=== PATIENT | female | born 1980 | race Caucasian/White ===

== ENCOUNTER 2019-04-25 12:27 | Inpatient (IN) | payer OTHER ==
[2019-04-25] MEDS ORDERED: ONDANSETRON 4 MG/2 ML VIAL ONE (13:00)
[2019-04-25] MEDS ORDERED: NA CHLORIDE 0.9% 1,000 ML ONE (13:00)
[2019-04-25 13:23] LABS: Absolute Lymphocytes (CBC) 1.7 K/uL (0.7-4.9); Basophils % 0.3 % (0-1.3); Hematocrit 35.9 % (36.0-45.0); Lymphocytes % 7.9 % (15.3-44.8); MPV 7.6 fL (7.6-11.3); RBC Red Blood Cell Count 4.01 M/uL (3.86-4.86)
[2019-04-25 14:06] LABS: Platelet Estimate INCR
[2019-04-25 14:07] LABS: Blood Morphology Comment NOT SEEN (NOT SEEN)
--- NOTE | 2019-04-25 14:07 | RAD REPORT ---
EXAM DESCRIPTION: CT - Chest For Pe Angio - 04/25/2019 1:49 pm CLINICAL HISTORY: Chest pain COMPARISON: None. TECHNIQUE: Dynamically enhanced axial 3 mm thick images of the chest were obtained during administra tion of <100> mL Isovue 370 IV contrast. Coronal and oblique reconstruction images were generated and reviewed. Exam utilizes a protocol for optimal evaluation of pulmonary arterial tree. Maximum intensity projections 3D imaging was utilized All CT scans are performed using dose optimization technique as appropriate and may include automated exposure control or mA/KV adjustment according to patient size. FINDINGS: The opacification of pulmonary arteries is somewhat suboptimal No central pulmonary embolus seen. A thoracic aortic aneurysm is not noted. A pleural effusion is not seen. A pericardial effusion is not seen. Mild to moderate bilateral hilar lymphadenopathy. Mild mediastinal lymphadenopathy Moderate left and moderate to marked right alveolar opacities. Calcified granuloma right lung IMPRESSION: Negative for central pulmonary embolus [id number] bilateral pulmonary opacities probably represent pneumonia. Mediastinal and hilar lymphadenopathy probably reactive in nature. As neoplasm could also have this a ppearance this should be followed on subsequent examination to assess stability/resolution
[2019-04-25] MEDS ORDERED: ALBUTEROL 2.5 MG/3 ML NEB SOL ONE (14:21)
[2019-04-25] MEDS ORDERED: IPRATROPIUM BROM 0.5MG/2.5ML ONE (14:21)
[2019-04-25] MEDS ORDERED: CEFTRIAXONE/SWI 1gm 1 GM/10 ML SYR ONE (14:38)
--- NOTE | 2019-04-25 14:40 | ER ---
Nurse's Notes [facility] Name: Sonia Cowart Age: 39 yrs Sex: Female : 1980 Arrival Date: 04/25/2019 Time: 12:28 Bed 5 Private MD: Diagnosis: Pneumonia, unspecified organism;Hypokalemia;Hypoxia Presentation: 04/25 12:46 Presenting complaint: Sent by [facility] for elevated WBC and low K. Pt reports N/V/D and hb fever x 4 days. TMAX 102. Transition of care: patient was not received from another setting of care. Onset of symptoms was April 21, 2019. Risk Assessment: Do you want to hurt yourself or someone else? Patient reports no desire to harm self or others. Initial Sepsis Screen: Does the patient meet any 2 criteria? No. Patient's initial sepsis screen is negative. Does the patient have a suspected source of infection? No. Patient's initial sepsis screen is negative. Care prior to arrival: None. 12:46 Method Of Arrival: Ambulatory hb 12:46 Acuity: LAUREN 3 hb CHANGE MANAGEMENT LEAD: 13:48 lmp -2 weeks ago mg2 Historical: - Allergies: 12:48 No Known Allergies; hb - Immunization history:: Flu vaccine status is unknown. - Social history:: Smoking status: unknown. - Ebola Screening: : No symptoms or risks identified at this time. Screenin:19 Abuse screen: Denies threats or abuse. Denies injuries from another. Nutritional mg2 screening: No deficits noted. Tuberculosis screening: No symptoms or risk factors identified. Fall Risk IV access (20 points). Assessment: 13:27 General: Appears in no apparent distress. comfortable, Behavior is calm, cooperative. mg2 Pain: Denies pain. Neuro: Level of Consciousness is awake, alert, obeys commands, Oriented to person, place, time, situation. Cardiovascular: Capillary refill < 3 seconds Patient's skin is warm and dry. Respiratory: Reports cough that is congestion Airway is patent Respiratory effort is even, unlabored, Respiratory pattern is regular, symmetrical. GI: Reports vomiting. : No signs and/or symptoms were reported regarding the genitourinary system. EENT: No signs and/or symptoms were reported regarding the EENT system. Derm: Skin is intact, is healthy with good turgor, Skin is pink, warm \T\ dry. normal. Musculoskeletal: Circulation, motion, and sensation intact. Capillary refill < 3 seconds. 14:31 Reassessment: Patient appears in no apparent distress at this time. Patient and/or mg2 family updated on plan of care and expected duration. Pain level reassessed. Patient is alert, oriented x 3, equal unlabored respirations, skin warm/dry/pink. 15:13 Reassessment: Patient appears in no apparent distress at this time. Patient and/or ph family updated on plan of care and expected duration. Pain level reassessed. Patient is alert, oriented x 3, equal unlabored respirations, skin warm/dry/pink. Pt resting comfortably, reports that SOB has improved after neb tx, Spo2 93-95% RA, placed on NC at 2L, improved to 97%, awaiting room assignment. 16:02 Reassessment: Patient appears in no apparent distress at this time. Patient and/or ph family updated on plan of care and expected duration. Pain level reassessed. Patient is alert, oriented x 3, equal unlabored respirations, skin warm/dry/pink. Report called to Yamilex MCCARTHY, pt taken to room via wheelchair. Vital Signs: 12:48 BP 148 / 103; Pulse 113; Resp 16; Temp 99.9(TE); Pulse Ox 95% on R/A; Pain 3/10; hb 13:47 BP 119 / 87; Pulse 120; Resp 18; Pulse Ox 95% on R/A; mg2 15:14 BP 85 / 75; Pulse 131; Resp 20; Temp 100.8(O); Pulse Ox 95% on 2 lpm NC; ph 15:51 BP 101 / 56; Pulse 125; Resp 20; Temp 97.4(A); Pulse Ox 95% on 2 lpm NC; ph ED Course: 12:28 Patient arrived in ED. rg4 12:48 Triage completed. hb 12:49 Arm band placed on. hb 12:50 Chaya Dubon FNP-C is PHCP. kb 12:50 Carlin Mckenna MD is Attending Physician. kb 12:56 Nadine Kincaid RN is Primary Nurse. ph 13:08 Initial lab(s) drawn, by ED staff, sent to lab. Inserted saline lock: 20 gauge in right ph antecubital area, using aseptic technique. Blood collected. 13:48 Patient has correct armband on for positive identification. Pulse ox on. NIBP on. Door mg2 closed. 13:48 No provider procedures requiring assistance completed. mg2 13:49 CT Chest For PE Angio In Process Unspecified. EDMS 14:39 Felipe Patel is Hospitalizing Provider. kb 16:03 Patient admitted, IV remains in place. ph Administered Medications: 13:19 Drug: NS 0.9% 1000 ml Route: IV; Rate: 1000 ml; Site: right antecubital; mg2 15:00 Follow up: Response: No adverse reaction; IV Status: Completed infusion; IV Intake: ph 1000ml 13:19 Drug: Zofran 4 mg Route: IVP; Site: right antecubital; mg2 16:05 Follow up: Response: No adverse reaction; Nausea is decreased ph 14:23 Drug: DuoNeb (3:1) (2.5 mg - 0.5 mg) 3 ml Route: Nebulizer; mg2 15:16 Follow up: Response: No adverse reaction ph 15:00 Drug: Rocephin 1 grams Route: IV; Rate: calculated rate; Site: right antecubital; ph 15:16 Follow up: Response: No adverse reaction; IV Status: Completed infusion ph 15:15 Drug: Zithromax 500 mg Route: IVPB; Infused Over: 1 hrs; Site: right antecubital; ph 16:05 Follow up: Response: No adverse reaction; IV Status: Infusion continued upon admission ph 15:15 Drug: Potassium Chloride 40 mEq Route: PO; ph 15:16 Follow up: Response: No adverse reaction ph 15:15 Drug: Tylenol 1000 mg Route: PO; ph 16:04 Follow up: Response: No adverse reaction; Temperature is decreased ph 15:59 Drug: NS 0.9% 1000 ml Route: IV; Rate: 125 ml/hr; Site: right antecubital; mg2 16:04 Follow up: Response: No adverse reaction; IV Status: Infusion continued upon admission ph Intake: 15:00 IV: 1000ml; Total: 1000ml. ph Outcome: 14:39 Decision to Hospitalize by Provider. kb 16:03 Admitted to Med/surg accompanied by tech, via wheelchair, room 206, with oxygen, with ph chart, Report called to Yamilex MCCARTHY 16:03 Condition: stable 16:03 Instructed on the need for admit. 16:35 Patient left the ED. ph Signatures: Dispatcher [employer] EDMS Chaya Dubon, VICE CHAIRMAN-C VICE CHAIRMAN-Nadine Cox RN RN ph Maddie Willard RN RN Anu Jackson 4 Brice Schroeder RN RN mg2 Corrections: (The following items were deleted from the chart) 14:34 14:31 Reassessment: Patient appears in no apparent distress at this time. Patient mg2 and/or family updated on plan of care and expected duration. Pain level reassessed. Patient is alert, oriented x 3, equal unlabored respirations, skin warm/dry/pink. Patient states feeling better. mg2
--- NOTE | 2019-04-25 14:41 | EDPHYS ---
Physician Documentation [facility] Name: Sonia Cowart Age: 39 yrs Sex: Female : 1980 Arrival Date: 04/25/2019 Time: 12:28 Bed 5 Private MD: ED Physician Carlin Mckenna HPI: 04/25 14:38 This 39 yrs old Female presents to ER via Ambulatory with complaints of Flu kb Symptoms. 14:38 The patient or guardian reports cough, difficulty breathing, flu symptoms. Onset: The kb symptoms/episode began/occurred 4 day(s) ago. Modifying factors: The symptoms are alleviated by nothing. the symptoms are aggravated by nothing. Associated signs and symptoms: Pertinent positives: chest pain, fever, nausea, vomiting, Pertinent negatives: diarrhea, ear ache, sore throat. Severity of symptoms: At their worst the symptoms were moderate severe in the emergency department the symptoms are unchanged. The patient has not experienced similar symptoms in the past. The patient has not recently seen a physician. UMBRELLA CUTTER: 13:48 lmp -2 weeks ago mg2 Historical: - Allergies: 12:48 No Known Allergies; hb - Immunization history:: Flu vaccine status is unknown. - Social history:: Smoking status: unknown. - Ebola Screening: : No symptoms or risks identified at this time. ROS: 14:34 ENT: Negative for injury, pain, and discharge, Neck: Negative for injury, pain, and kb swelling, Cardiovascular: Negative for chest pain, palpitations, and edema, Back: Negative for injury and pain, : Negative for injury, bleeding, discharge, and swelling, MS/Extremity: Negative for injury and deformity, Skin: Negative for injury, rash, and discoloration, Neuro: Negative for headache, weakness, numbness, tingling, and seizure. 14:34 Constitutional: Positive for fever, malaise. 14:34 Respiratory: Positive for cough, dyspnea on exertion, shortness of breath, Negative for hemoptysis, orthopnea, pleurisy, sputum production, wheezing. 14:34 Abdomen/GI: Positive for nausea and vomiting. Exam: 14:37 Constitutional: This is a well developed, well nourished patient who is awake, alert, kb and in no acute distress. Head/Face: Normocephalic, atraumatic. Neck: Trachea midline, no thyromegaly or masses palpated, and no cervical lymphadenopathy. Supple, full range of motion without nuchal rigidity, or vertebral point tenderness. No Meningismus. Chest/axilla: Normal chest wall appearance and motion. Nontender with no deformity. No lesions are appreciated. Cardiovascular: Regular rate and rhythm with a normal S1 and S2. No gallops, murmurs, or rubs. Normal PMI, no JVD. No pulse deficits. Abdomen/GI: Soft, non-tender, with normal bowel sounds. No distension or tympany. No guarding or rebound. No evidence of tenderness throughout. Skin: Warm, dry with normal turgor. Normal color with no rashes, no lesions, and no evidence of cellulitis. MS/ Extremity: Pulses equal, no cyanosis. Neurovascular intact. Full, normal range of motion. Neuro: Awake and alert, GCS 15, oriented to person, place, time, and situation. Cranial nerves II-XII grossly intact. Motor strength 5/5 in all extremities. Sensory grossly intact. Cerebellar exam normal. Normal gait. 14:37 Respiratory: mild respiratory distress is noted, Respirations: labored breathing, that is mild, Breath sounds: decreased breath sounds, that are mild, rhonchi, that are mild. Vital Signs: 12:48 BP 148 / 103; Pulse 113; Resp 16; Temp 99.9(TE); Pulse Ox 95% on R/A; Pain 3/10; hb 13:47 BP 119 / 87; Pulse 120; Resp 18; Pulse Ox 95% on R/A; mg2 15:14 BP 85 / 75; Pulse 131; Resp 20; Temp 100.8(O); Pulse Ox 95% on 2 lpm NC; ph 15:51 BP 101 / 56; Pulse 125; Resp 20; Temp 97.4(A); Pulse Ox 95% on 2 lpm NC; ph MDM: 12:50 Patient medically screened. kb 14:36 Data reviewed: vital signs, nurses notes. Data interpreted: Pulse oximetry: on room air kb is 89 %. Interpretation: hypoxia. Counseling: I had a detailed discussion with the patient and/or guardian regarding: the historical points, exam findings, and any diagnostic results supporting the discharge/admit diagnosis, lab results, radiology results, the need for further work-up and treatment in the hospital. Physician consultation: Felipe Patel was contacted at 14:37, regarding admission, to the medical/surgical unit. patient's condition, and will see patient in ED, shortly. 04/25 12:53 Order name: CBC with Diff; Complete Time: 14:11 kb 04/25 12:54 Order name: D-Dimer; Complete Time: 13:30 kb 04/25 12:55 Order name: Flu; Complete Time: 13:43 kb 04/25 13:38 Order name: Manual Differential; Complete Time: 14:11 EDMS 04/25 14:32 Order name: Blood Culture Adult (2) ph 04/25 14:32 Order name: Lactate; Complete Time: 15:27 ph 04/25 13:28 Order name: CT Chest For PE Angio; Complete Time: 14:12 kb 04/25 14:32 Order name: Procalcitonin; Complete Time: 15:45 ph 04/25 12:53 Order name: IV Start; Complete Time: 13:08 kb Administered Medications: 13:19 Drug: NS 0.9% 1000 ml Route: IV; Rate: 1000 ml; Site: right antecubital; mg2 15:00 Follow up: Response: No adverse reaction; IV Status: Completed infusion; IV Intake: ph 1000ml 13:19 Drug: Zofran 4 mg Route: IVP; Site: right antecubital; mg2 16:05 Follow up: Response: No adverse reaction; Nausea is decreased ph 14:23 Drug: DuoNeb (3:1) (2.5 mg - 0.5 mg) 3 ml Route: Nebulizer; mg2 15:16 Follow up: Response: No adverse reaction ph 15:00 Drug: Rocephin 1 grams Route: IV; Rate: calculated rate; Site: right antecubital; ph 15:16 Follow up: Response: No adverse reaction; IV Status: Completed infusion ph 15:15 Drug: Zithromax 500 mg Route: IVPB; Infused Over: 1 hrs; Site: right antecubital; ph 16:05 Follow up: Response: No adverse reaction; IV Status: Infusion continued upon admission ph 15:15 Drug: Potassium Chloride 40 mEq Route: PO; ph 15:16 Follow up: Response: No adverse reaction ph 15:15 Drug: Tylenol 1000 mg Route: PO; ph 16:04 Follow up: Response: No adverse reaction; Temperature is decreased ph 15:59 Drug: NS 0.9% 1000 ml Route: IV; Rate: 125 ml/hr; Site: right antecubital; mg2 16:04 Follow up: Response: No adverse reaction; IV Status: Infusion continued upon admission ph Disposition: 04/25/19 14:39 Hospitalization ordered by Felipe Patel for Inpatient Admission. Preliminary diagnosis are Pneumonia, unspecified organism, Hypokalemia, Hypoxia. - Bed requested for Telemetry/MedSurg (Inpatient). - Status is Inpatient Admission. ph - Condition is Stable. - Problem is new. - Symptoms are unchanged. UTI on Admission? No Signatures: Dispatcher [employer] EDSD Chaya Dubon, PRODUCT MANAGEMENT MANAGER-C PRODUCT MANAGEMENT MANAGER-Ckb Shannon Patel, RN RN dw Nadine Kincaid, RN RN Maddie Willard, RN RN Brice Schroeder, RN RN mg2 Corrections: (The following items were deleted from the chart) 13:40 12:54 Chest Pa And Lat (2 Views)+[email or web address] ordered. [facility] 15:38 14:39 Hospitalization Ordered by Felipe Patel for Inpatient Admission. Preliminary diagnosis is Pneumonia, unspecified organism; Hypokalemia; Hypoxia. Bed requested for Telemetry/MedSurg (Inpatient). Status is Inpatient Admission. Condition is Stable. Problem is new. Symptoms are unchanged. UTI on Admission? No. kb 16:35 15:38 04/25/2019 14:39 Hospitalization Ordered by Felipe Patel for Inpatient ph Admission. Preliminary diagnosis is Pneumonia, unspecified organism; Hypokalemia; Hypoxia. Bed requested for Telemetry/MedSurg (Inpatient). Status is Inpatient Admission. Condition is Stable. Problem is new. Symptoms are unchanged. UTI on Admission? No. dw
[2019-04-25] MEDS ORDERED: AZITHROMYCIN IV 500 MG in NA CHLORIDE 0.9% 250 ML IVPB ONE (15:00)
[2019-04-25] MEDS ORDERED: POTASSIUM CL SA 10 MEQ TAB PO ONE (15:04)
[2019-04-25] MEDS ORDERED: ACETAMINOPHEN 500 MG TAB ONE (15:04)
[2019-04-25 16:49] VITALS: BMI 32.3
--- NOTE | 2019-04-25 18:04 | P.HP ---
Certification for Inpatient Patient admitted to: Inpatient With expected LOS: >2 Midnights Practitioner: I am a practitioner with admitting privileges, knowledge of patient current condition, hospital course, and medical plan of care. Services: Services provided to patient in accordance with Admission requirements found in Title 42 Section 412.3 of the Code of Federal Regulations Patient History Date of Service: 04/25/19 Reason for admission: Shortness of breath History of Present Illness: 39-year-old woman with a history of anxiety and depression presented to the emergency department with a complaint of cough, shortness of breath and flu- like symptoms for about 4 days duration. Patient reports progressive worsening of symptoms. She also reports a sick contact. She stated her father has also been diagnosed with pneumonia. She reports subjective fever. In the ED, CBC revealed severe leukocytosis. D-dimer elevated. This was followed by a CTA thorax which reported pneumonia. Patient was hypoxic on room air and required oxygen. She is admitted for further management of pneumonia with hypoxia and sepsis. Allergies No Known Allergies Allergy (Unverified 04/25/19 16:08) Home Medications: Amitriptyline [Elavil] 25 mg PO BEDTIME 04/25/19 Sertraline [Zoloft] 100 mg PO BEDTIME 04/25/19 - Past Medical/Surgical History Has patient received pneumonia vaccine in the past: No Diabetic: No -: anxiety -: Depression -: [place] accident -: back surgery -: right ankle orif - Family History Father -: Heart disease, Hypertension Mother -: Hypertension - Social History Smoking Status: Never smoker CD- Drugs: Yes Caffeine use: Yes Place of Residence: Home Review of Systems Lymphatics: Other Other: General: No fever, no malaise, no unintentional weight loss. Eyes: No eye discharge, Respiratory: No cough, no shortness of breath. CVS: No chest pain, no palpitation, no lightheadedness. GI: No abdominal pain, no nausea no vomit, no constipation, no diarrhea. Genitourinary: No dysuria, no urinary frequency, no incontinence, no hematuria. Musculoskeletal: No joint pains, or joint swelling, no gait instability. Neurology: No headache, no asymmetric, weakness, no problem with swallowing. Except last documented, all other systems reviewed and negative. Physical Examination - Vital Signs Temperature: 97.4 F Blood Pressure: 119/67 Pulse: 113 Respirations: 19 Pulse Ox (%): 93 - Physical Exam General: Alert, In no apparent distress, Oriented x3 HEENT: Normocephalic, Mucous membr. moist/pink Neck: Supple, JVD not distended Respiratory: Clear to auscultation bilaterally, Normal air movement Cardiovascular: No edema, Normal S1 S2, Other (Tachycardia) Capillary refill: <2 Seconds Gastrointestinal: Normal bowel sounds, Soft and benign, No tenderness Musculoskeletal: No clubbing, No swelling, No erythema Integumentary: No rashes Neurological: Normal strength at 5/5 x4 extr, Normal affect Lymphatics: No axilla or inguinal lymphadenopathy - Studies Laboratory Data (last 24 hrs) 04/25/19 13:05: WBC 20.8 H*, Hgb 12.2, Hct 35.9 L, Plt Count 478 H Microbiology Data (last 24 hrs): 04/25/19 13:05 Nasopharnyx Influenza Type A Antigen Screen - Final 04/25/19 13:05 Nasopharnyx Influenza Type B Antigen Screen - Final Assessment and Plan - Problems (Diagnosis) (1) Pneumonia Current Visit: Yes Status: Acute (2) Sepsis Current Visit: Yes Status: Acute (3) Acute respiratory failure with hypoxemia Current Visit: Yes Status: Acute - Plan Admit to [facility] Sepsis protocol initiated. Blood cultures obtained in the ED. Obtain sputum cultures. Urine strep and Legionella antigen. IV Rocephin and Zithromax IV hydration with normal saline. Oxygen therapy Chest physiotherapy. Monitor CBC and blood chemistry. - Advance Directives Does patient have a Living Will: No Does patient have a Durable POA for Healthcare: No
[2019-04-25] MEDS: NA CHLORIDE 0.9% 1,000 ML IV SCH (20:16)
[2019-04-25] MEDS: ENOXAPARIN 40 MG/0.4 ML SQ SCH (20:52)
[2019-04-25] MEDS: CEFTRIAXONE/SWI 1gm 1 GM/10 ML SYR IVP SCH (20:53)
[2019-04-25] MEDS: ONDANSETRON 4 MG/2 ML VIAL IV PRN (23:15)
[2019-04-26] MEDS: ACETAMINOPHEN 500 MG TAB PO PRN ×4 (00:33→20:16)
[2019-04-26] MEDS: NA CHLORIDE 0.9% 1,000 ML IV SCH ×3 (02:43→14:19)
[2019-04-26 06:28] LABS: Absolute Lymphocytes (CBC) 1.3 K/uL (0.7-4.9); Basophils % 0.1 % (0-1.3); Hematocrit 31.7 % (36.0-45.0); Lymphocytes % 7.2 % (15.3-44.8); MPV 7.4 fL (7.6-11.3); RBC Red Blood Cell Count 3.55 M/uL (3.86-4.86)
[2019-04-26 06:49] LABS: BUN Blood Urea Nitrogen 7 mg/dL (7-18); Bicarbonate 26 mmol/L (21-32); Glucose Level 124 mg/dL (74-106); HDL Cholesterol 21 mg/dL (40-60); LDL Cholesterol, Calculated 58 (<130); Magnesium 2.2 mg/dL (1.8-2.4); Potassium 3.3 mmol/L (3.5-5.1); Sodium Level 143 mmol/L (136-145)
[2019-04-26] MEDS: CEFTRIAXONE/SWI 1gm 1 GM/10 ML SYR IVP SCH ×2 (08:35→20:16)
[2019-04-26] MEDS: ENOXAPARIN 40 MG/0.4 ML SQ SCH (08:36)
[2019-04-26] MEDS ORDERED: AZITHROMYCIN IV 250 MG in NA CHLORIDE 0.9% 250 ML IVPB SCH (09:00)
[2019-04-26] MEDS ORDERED: POTASSIUM CL SA 10 MEQ TAB PO ONE ×3 (09:00→23:08)
[2019-04-26] MEDS: IPRATROPIUM BROM 0.5MG/2.5ML NEB PRN ×2 (09:20→18:45)
[2019-04-26] MEDS: ALBUTEROL 2.5 MG/3 ML NEB SOL NEB PRN ×2 (09:20→18:45)
--- NOTE | 2019-04-26 12:36 | P.PN ---
Subjective Date of Service: 04/26/19 Chief Complaint: Shortness of breath She has been experiencing intermittent low grade fever and chills. She has been coughing occasionally. Cough is nonproductive. She also reports pleurisy-right lower chest. Stated her appetite is poor. Review of Systems 10-point ROS is otherwise unremarkable Physical Examination - Vital Signs Temperature: 99.0 F Blood Pressure: 129/63 Pulse: 109 Respirations: 18 Pulse Ox (%): 94 - Physical Exam General: Alert, In no apparent distress, Oriented x3 HEENT: Mucous membr. moist/pink Neck: Supple, JVD not distended Respiratory: Clear to auscultation bilaterally, Normal air movement Cardiovascular: No edema, Regular rate/rhythm, Normal S1 S2 Capillary refill: <2 Seconds Gastrointestinal: Normal bowel sounds, Soft and benign, No tenderness Musculoskeletal: No swelling, No erythema Integumentary: No rashes Neurological: Normal strength at 5/5 x4 extr, Normal affect - Studies Laboratory Data (last 24 hrs) 04/25/19 13:05: WBC 20.8 H*, Hgb 12.2, Hct 35.9 L, Plt Count 478 H Microbiology Data (last 24 hrs): 04/25/19 13:05 Nasopharnyx Influenza Type A Antigen Screen - Final 04/25/19 13:05 Nasopharnyx Influenza Type B Antigen Screen - Final Assessment And Plan - Current Problems (Diagnosis) (1) Pneumonia Current Visit: Yes Status: Acute (2) Sepsis Current Visit: Yes Status: Acute (3) Acute respiratory failure with hypoxemia Current Visit: Yes Status: Acute - Plan Leukocytosis improved slightly from yesterday. Follow blood cultures IV Rocephin and Zithromax. May change antibiotics if intermittent fever persist. Continue IV hydration with normal saline. Oxygen therapy Chest physiotherapy. Monitor CBC and blood chemistry. Tylenol p.r.n. for pain.
[2019-04-26 15:29] LABS: Absolute Lymphocytes (CBC) 2.1 K/uL (0.7-4.9); Basophils % 0.2 % (0-1.3); Hematocrit 32.7 % (36.0-45.0); Lymphocytes % 12.2 % (15.3-44.8); MPV 7.5 fL (7.6-11.3); RBC Red Blood Cell Count 3.58 M/uL (3.86-4.86)
[2019-04-26] MEDS: ONDANSETRON 4 MG/2 ML VIAL IV PRN (15:36)
[2019-04-26] MEDS: KETOROLAC 30 MG/ML INJ IV PRN (18:42)
[2019-04-26] MEDS ORDERED: Levofloxacin 750mg IV 750 MG/150 ML BAG IV SCH (20:00)
[2019-04-27] MEDS: ONDANSETRON 4 MG/2 ML VIAL IV PRN (01:09)
[2019-04-27] MEDS: KETOROLAC 30 MG/ML INJ IV PRN ×2 (01:10→06:22)
[2019-04-27] MEDS: NA CHLORIDE 0.9% 1,000 ML IV SCH (01:32)
[2019-04-27] MEDS: ACETAMINOPHEN 500 MG TAB PO PRN (02:25)
[2019-04-27 05:12] LABS: BUN Blood Urea Nitrogen 7 mg/dL (7-18); Bicarbonate 21 mmol/L (21-32); Glucose Level 99 mg/dL (74-106); Potassium 3.8 mmol/L (3.5-5.1); Sodium Level 141 mmol/L (136-145)
[2019-04-27] MEDS ORDERED: POTASSIUM CL SA 10 MEQ TAB PO ONE (05:16)
[2019-04-27] MEDS ORDERED: HYDROCORTISONE SUC 100 MG INJ IV SCH ×2 (06:00)
[2019-04-27] MEDS: ENOXAPARIN 40 MG/0.4 ML SQ SCH (08:03)
[2019-04-27] MEDS: CEFTRIAXONE/SWI 1gm 1 GM/10 ML SYR IVP SCH (08:03)
[2019-04-27 08:19] VITALS: BP 119/67; TEMP 98
--- NOTE | 2019-04-27 08:21 | P.DS ---
Discharge Date: 04/27/19 Disposition: ROUTINE DISCHARGE Discharge Condition: GOOD Reason for Admission: Shortness of breath Brief History of Present Illness: Patient is a 39-year-old female came to the hospital with nausea and vomiting and shortness of breath. Patient was running fevers and was feeling really bad for 3-4 days. Her dad was sick with pneumonia as well. She came into the ER and she had bilateral pulmonary opacities on her x-ray. She was admitted to the hospital for further workup. Hospital Course: Patient has done well during hospital stay. Clinically she is doing much better. She is stable for discharge at this time. She is advised to continue with Tylenol and Motrin alternating for fevers. Continue Levaquin for 5 more days. Phenergan as needed for nausea as Zofran can prolong QT interval along with the Levaquin. Outpatient follow with Pulmonary for further evaluation. Refrain from any kind of smoking. Vital Signs/Physical Exam: Temp Pulse Resp BP Pulse Ox 98.2 F 104 H 18 118/72 93 04/27/19 07:22 04/27/19 04:10 04/27/19 04:10 04/27/19 04:10 04/27/19 04:10 General: Alert, In no apparent distress, Oriented x3 Laboratory Data at Discharge: WBC 17.4 K/uL (4.3-10.9) H 04/26/19 14:54 Hgb 10.9 g/dL (12.0-15.0) L 04/26/19 14:54 Hct 32.7 % (36.0-45.0) L 04/26/19 14:54 Plt Count 456 K/uL (152-406) H 04/26/19 14:54 Sodium 141 mmol/L (136-145) 04/27/19 04:27 Potassium 3.8 mmol/L (3.5-5.1) 04/27/19 04:27 BUN 7 mg/dL (7-18) 04/27/19 04:27 Creatinine 0.57 mg/dL (0.55-1.3) 04/27/19 04:27 Glucose 99 mg/dL (74-106) 04/27/19 04:27 Phosphorus 3.0 mg/dL (2.5-4.9) 04/26/19 05:40 Magnesium 2.2 mg/dL (1.8-2.4) 04/26/19 05:40 Triglycerides 69 mg/dL (<150) 04/26/19 05:40 Cholesterol 93 mg/dL (<200) 04/26/19 05:40 HDL Cholesterol 21 mg/dL (40-60) L 04/26/19 05:40 Cholesterol/HDL Ratio 4.43 04/26/19 05:40 Home Medications: Amitriptyline [Elavil] 25 mg PO BEDTIME 04/25/19 Sertraline [Zoloft] 100 mg PO BEDTIME 04/25/19 Levofloxacin [Levaquin] 500 mg PO DAILY #5 tablet 04/27/19 Promethazine HCl 25 mg PO Q6H PRN #20 tablet 04/27/19 New Medications: Levofloxacin [Levaquin] 500 mg PO DAILY #5 tablet Promethazine HCl 25 mg PO Q6H PRN #20 tablet PRN Reason: Nausea / Vomiting Patient Discharge Instructions: OK TO DC IV AND DC HOME. FOLLOW-UP WITH PRIMARY CARE PROVIDER IN 1-2 WEEKS. FOLLOW-UP WITH Pulmonary IN 1-2 WEEKS. RETURN TO THE ER IF symptoms worsen. CALL or TEXT DR. THAYER AT [phone] IF ANY QUESTIONS REGARDING HOSPITAL STAY. PLEASE CALL THE FLOOR AT [phone] IF ANY MEDICATION OR NURSING QUESTIONS. Diet: Regular Activity: Fall precautions Time spent managing pt's care (in minutes): 30
[2019-04-27 09:15] VITALS: O2SAT 96
--- NOTE | 2019-04-27 10:34 | P.CNS ---
Date of Consult: 04/27/19 Chief Complaint: Acute lung injury History of Present Illness: Patient is 39 years of age admitted with 4 day history of cough congestion fever flu-like symptoms became worse ended up here in the hospital patient smokes marijuana denies the pain or smoking THC no other medical issues apart from been treated for depression and bruxism doing much better since admission Allergies No Known Allergies Allergy (Unverified 04/25/19 16:08) Home Medications: Amitriptyline [Elavil] 25 mg PO BEDTIME 04/25/19 Sertraline [Zoloft] 100 mg PO BEDTIME 04/25/19 Levofloxacin [Levaquin] 500 mg PO DAILY #5 tablet 04/27/19 Promethazine HCl 25 mg PO Q6H PRN #20 tablet 04/27/19 predniSONE [Prednisone] 10 mg PO BID #20 tablet 04/27/19 - Past Medical/Surgical History Diabetic: No -: anxiety -: Depression -: [place] accident -: back surgery -: right ankle orif - Family History Father Medical History: Heart disease, Hypertension Mother Medical History: Hypertension - Social History Smoking Status: Unknown if ever smoked CD- Drugs: Yes Caffeine use: Yes Place of Residence: Home Review of Systems 10-point ROS is otherwise unremarkable Physical Examination Temp Pulse Resp BP Pulse Ox 98 F 100 H 20 119/67 93 04/27/19 08:00 04/27/19 08:00 04/27/19 08:00 04/27/19 08:00 04/27/19 08:00 General: Alert, Oriented x3 Respiratory: Clear to auscultation bilaterally Cardiovascular: No edema, Regular rate/rhythm - Problems (1) Acute respiratory failure with hypoxemia Current Visit: Yes Status: Acute Plan: Patient is 39 years of age admitted with acute lung injury diffuse bilateral pneumonia he denies use of THC or weeping any case patient is doing much better can be discharged home on antibiotics and steroids patient's white count is elevated mildly hypokalemic currently doing much better 96% on room air agree with discharge on steroids
--- NOTE | 2019-04-27 11:58 | RAD REPORT ---
EXAM DESCRIPTION: RAD - Chest Single View - 04/27/2019 6:55 am CLINICAL HISTORY: pneumonia Chest pain. COMPARISON: CHEST PA AND LAT 2 VIEW dated 02/17/2011; ABDOMEN ACUTE SERIES dated 02/11/2011; CHEST PA AN D LAT 2 VIEW dated 10/24/2010; Chest For Pe Angio dated 04/25/2019 FINDINGS: Portable technique limits examination quality. Moderate bilateral pulmonary opacities are present likely representing pneumonia. The heart is normal in size. No displaced fractures.
== END 2019-04-27 10:41 | disposition home or self-care (01) | DRG 871 ==
LOC: ER 12:27 → ERHOLD 15:28 → 2ND 16:03
PROVIDERS: ADMIT Internal Medicine; ATTEND Internal Medicine
DX: A41.9 Sepsis, unspecified organism (principal); J18.9 Pneumonia, unspecified organism; J96.00 Acute respiratory failure, unspecified whether with hypoxia or hypercapnia; R09.02 Hypoxemia; F41.8 Other specified anxiety disorders
CPT/HCPCS: 36415; 71045; 71275; 80048; 80061; 83605; 83735; 84100; 84132; 84145; 85025; 85379; 87040; 87804; 94640; 94760; 96361; 96365; 96368; 96375; 99285; J0456; J0696; J1650; J1720; J2405; J7030; Q9967